=== PATIENT | male | born 1990 | race Caucasian/White ===

== ENCOUNTER 2020-09-03 07:32 | Outpatient (CLI) | payer OTHER ==
--- NOTE | 2020-09-03 09:01 | ULT ---
HEPATIC ULTRASOUND WITH MONACO SCALE AND COLOR FLOW AND SPECTRAL DOPPLER IMAGING: Date: 09/03/2020 HISTORY: Abnormal LFTs. FINDINGS: The liver demonstrates increased echogenicity consistent with fatty infiltration without focal mass o r abnormal biliary ductal dilatation. No shadowing gallstones, gallbladder wall thickening, or perich olecystic fluid is seen. There is a trace amount of sludge in the gallbladder. The spleen is enlarged measuring 15.0 cm in length. The pancreas is not satisfactorily visualized due to overlying bowel ga s. The common duct measures 4.0 mm in diameter. No free fluid is seen in the right upper quadrant. Vi sualized portions of the aorta and IVC are unremarkable. There is normal flow and spectral waveforms in the portal, splenic, and hepatic vasculature. IMPRESSION: 1. Fatty liver. 2. Trace gallbladder sludge. 3. Splenomegaly. POS: OFF
== END 2020-09-03 07:33 | disposition home or self-care (01) ==
LOC: BICULT 07:32
PROVIDERS: ATTEND Internal Medicine Gastroenterology
DX: K51.50 Left sided colitis without complications (principal); R94.5 Abnormal results of liver function studies; K76.0 Fatty (change of) liver, not elsewhere classified; R16.1 Splenomegaly, not elsewhere classified
CPT/HCPCS: 76705